=== PATIENT | male | born 1960 | race Caucasian/White ===

== ENCOUNTER → 2017-08-29 | Outpatient (REF) | payer OTHER ==
[~2017-08-29] MED LIST: CEP500 PO; DIPH-466 PO; DOCU-416 PO; HYDR-4309 PO; IBUP-1671 PO; IBUP-2708 PO; IBUP600T22 PO; MULT1CAP41 PO; OLOOD OP; OMEP-218 PO; PER PO; PHEN-530 PO; PHEN200T32 PO; RAMI5CAP PO; RAMI5CAP53 PO; RAMIPRIL; SIL20T TOP; SIMV-49 PO; SIMVASTATIN; TOLT2CAP7 PO; [UNRECOGNIZED DRUG - CODE] PO
== END ==
LOC: ZZSENDIN 11:00
PROVIDERS: ATTEND Urology
DX: R31.9 Hematuria, unspecified (principal)
CPT/HCPCS: 88108

== ENCOUNTER → 2017-11-27 | Outpatient (REF) | payer SELFPAY | LOC: ZZSENDIN 13:50 | PROVIDERS: ATTEND Urology | DX: R31.9 Hematuria, unspecified (principal) | CPT/HCPCS: 88108 ==

== ENCOUNTER → 2018-05-21 | Outpatient (REF) | payer BC ==
[~2018-05-21] MED LIST changes: -HYDR-4309 PO; +HYDR-653 PO; -RAMI5CAP53 PO; +RAMI5CAP7 PO
== END ==
LOC: ZZSENDIN 14:40
PROVIDERS: ATTEND Urology
DX: C67.9 Malignant neoplasm of bladder, unspecified (principal)
CPT/HCPCS: 88108

== ENCOUNTER → 2018-09-24 | Outpatient (REF) | payer BC | LOC: ZZSENDIN 12:00 | PROVIDERS: ATTEND Urology | DX: R31.9 Hematuria, unspecified (principal) | CPT/HCPCS: 88108 ==